=== PATIENT | female | born 1980 | race Caucasian/White ===

== ENCOUNTER 2020-11-15 07:56 | Emergency (ER) | payer OTHER ==
[~2020-11-15] VITALS: Ht 167.6 cm; Wt 146.5 kg
[2020-11-15] MEDS ORDERED: TRAMADOL 50 MG50 MG PO (10:39)
[2020-11-15] MEDS ORDERED: PHENERGAN 25 MG25 M1 PO (10:39)
[2020-11-15] MEDS ORDERED: BACTRIM DS TAB1 EACH PO (10:39)
[2020-11-15] MEDS ORDERED: IBUPROFEN 800800 MG PO (10:39)
[2020-11-15 10:51] VITALS: BP 124/68
== END 2020-11-15 10:52 | disposition home or self-care (01) ==
LOC: M.ERS 07:56
DX: L02.211 Cutaneous abscess of abdominal wall (principal); Z88.1 Allergy status to other antibiotic agents; Z88.5 Allergy status to narcotic agent; Z88.6 Allergy status to analgesic agent